=== PATIENT | female | born 1955 | race Caucasian/White ===

== ENCOUNTER → 2023-04-18 | Outpatient (CLI) | payer MEDICARE ==
[2023-04-18 08:57] LABS: ALT 30 U/L (4-34); AST 39 U/L (14-36); African American GFR (CKD) >90 (>60 ml/min/1.73 sqM); Albumin 3.8 g/dL (3.5-5.0); Albumin/Globulin Ratio 1.5; Alkaline Phosphatase 66 U/L (38-126); Anion Gap 9 mmol/L; Blood Urea Nitrogen 18 mg/dL (7-17); Calcium 8.2 mg/dL (8.4-10.2); Carbon Dioxide 23 mmol/L (22-30); Chloride 107 mmol/L (98-107); Globulin 2.5 g/dL; Glucose 84 mg/dL (74-99); Non-African American GFR(CKD) >90 (>60 ml/min/1.73 sqM); Potassium 4.1 mmol/L (3.5-5.1); Sodium 139 mmol/L (137-145); Total Bilirubin 1.1 mg/dL (0.2-1.3); Total Protein 6.3 g/dL (6.3-8.2)
--- NOTE | 2023-04-18 11:02 | CT ---
EXAMINATION TYPE: CT ChestAbdPelvis w con DATE OF EXAM: 04/18/2023 COMPARISON: None HISTORY: routine checkup colon cancer, cholecystectomy, R side colon removed. CT DLP: 1163.90 mGycm CONTRAST: CT scan of the chest, abdomen and pelvis is performed with Oral Contrast and with IV Contrast, patien t injected with 100mL mL of Isovue 300. CT Chest: LUNGS: The lungs are clear and free of infiltrate or atelectasis. No pulmonary nodule or mass is det ected. No pleural effusion or CT evidence of interstitial lung disease. MEDIASTINUM: Thoracic aorta is of normal caliber. The heart is not enlarged. No evidence for media stinal mass or adenopathy. Nodule right thyroid lobe. HILAR STRUCTURES: No evidence for mass. No hilar adenopathy is appreciated. OTHER: No significant abnormality. CONTRAST CT ABDOMEN AND PELVIS FINDINGS: LIVER/GB: No calcified gallstones. No space occupying hepatic lesion. Biliary tree is of normal ca liber. PANCREAS: No inflammation. No distinct mass. SPLEEN: No splenic enlargement. No lesion seen. ADRENALS: No nodule. No thickening. KIDNEYS/BLADDER: No hydronephrosis. No nephrolithiasis. No distinct renal mass. BOWEL: No recurrent or residual mass seen. Normal bowel caliber. No inflammation. Right hemicolectom y changes noted. Normal small bowel to large bowel anastomosis. Moderate fecal stasis. GENITAL ORGANS: No gross abnormality. LYMPH NODES: No greater than 1cm abdominal or pelvic lymph nodes are appreciated. AORTA: No significant abnormality. OSSEOUS STRUCTURES: No significant abnormality is seen. OTHER: No significant additional abnormality is seen. IMPRESSION: 1. Postoperative changes of right hemicolectomy. 2. No evidence for recurrent or residual mass. No metastatic disease. 3. Moderate fecal stasis.
[2023-04-18 11:52] LABS: T4, Free (Free Thyroxine) 1.26 ng/dL (0.80-1.80)
== END | disposition home or self-care (01) ==
LOC: RADCTMAIN 08:09
PROVIDERS: ATTEND Internal Medicine
DX: C18.4 Malignant neoplasm of transverse colon (principal); E03.9 Hypothyroidism, unspecified; Z71.3 Dietary counseling and surveillance; R19.5 Other fecal abnormalities; Z90.49 Acquired absence of other specified parts of digestive tract; Z98.890 Other specified postprocedural states
CPT/HCPCS: 84439; 80053; 84443; 83036; 71260; 74177; 36415; Q9967

== ENCOUNTER → 2023-06-05 | Outpatient (CLI) | payer MEDICARE ==
--- NOTE | 2023-06-14 13:47 | MM ---
Reason for Exam: Screening (asymptomatic). Last mammogram was performed 2 year(s) and 0 month(s) ago. Patient History: Menarche at age 9. First Full-Term at age 18. Hysterectomy at age 29. Postmenopausal. Paternal aunt had breast cancer. Risk Values: Zahra 5 year model risk: 1.4%. NCI Lifetime model risk: 4.2%. Prior Study Comparison: 05/23/2021 Bilateral Screening Mammogram, [place]. Tissue Density: There are scattered fibroglandular densities. Findings: Analyzed By CAD. There is no suspicious group of microcalcifications or new suspicious mass. Overall Assessment: Negative, BI-RAD 1 Management: Screening Mammogram of both breasts in [address] [facility] will attempt to contact patient to return for supplemental views and ultrasound if indicated. Patient should continue monthly self-breast exams. A clinical breast exam by your physician is recommended on an annual basis. This exam should not preclude additional follow-up of suspicious palpable abnormalities. Note on Zahra scores and lifetime risk: 1. A Zahra score greater than 3% is considered moderate risk. If this is the case, consider specialist referral to assess eligibility for a risk reducing agent. 2. If overall lifetime risk for the development of breast cancer is 20% or higher, the patient may qualify for future screening with alternating mammogram and breast MRI. Electronically signed and approved by: Kenrick Munguia DO
== END | disposition home or self-care (01) ==
LOC: RADMAMWWP 08:17
PROVIDERS: ATTEND Internal Medicine
DX: Z12.31 Encounter for screening mammogram for malignant neoplasm of breast (principal); C18.4 Malignant neoplasm of transverse colon; E78.5 Hyperlipidemia, unspecified; E03.9 Hypothyroidism, unspecified; Z71.3 Dietary counseling and surveillance; Z80.3 Family history of malignant neoplasm of breast; Z78.0 Asymptomatic menopausal state
CPT/HCPCS: 77063; 77067

== ENCOUNTER → 2023-06-05 | Outpatient (CLI) | payer MEDICARE ==
--- NOTE | 2023-06-05 10:37 | US ---
EXAMINATION TYPE: US thyroid st tissue head/neck DATE OF EXAM: 06/05/2023 COMPARISON: NONE CLINICAL INDICATION: Female, 68 years old with history of E04.2 NONTOXIC MULTINODULAR GOITER; Patient states right thyroid lobe has been removed and are watching a nodule. GLAND SIZE: Right Lobe: 4.5 x 2.2 x 2.8 cm Overall Parenchyma: unable to assess due to nodule; ? Nodule regrowth after thyroidectomy vs roe ve thyroid. Left Lobe: 1.6 x 0.7 x 0.9 cm Overall Parenchyma: Homogenous -unclear if this represents a small left thyroid lobe vs residual tissue following previous thyroidectomy Isthmus Thickness: 0.3 cm NODULES RIGHT: # of nodules measured on right: 1 1. 3.7 X 2.1 x 2.6 cm, solid cystic but predominantly solid heterogeneous TR 4 nodule which is wide r than tall, with smooth margins, with echogenic foci. Prior [place] LEFT: # of nodules measured on left: 0 ISTHMUS: # of nodules measured in the isthmus: 0 Bilateral neck scanned, no evidence of lymphadenopathy. IMPRESSION: 1. Large 3.7 cm TR4 nodule on the right. Please confirm patient's history. Patient reports history of previous right thyroidectomy. Compared to size on any available outside priors. FNA can be performed if this is new. 2. Small left lobe of the thyroid gland.
== END | disposition home or self-care (01) ==
LOC: RADUSWWP 08:19
PROVIDERS: ATTEND Internal Medicine Endocrinology, Diabetes & Metabolism
DX: E04.2 Nontoxic multinodular goiter (principal); E89.0 Postprocedural hypothyroidism
CPT/HCPCS: 76536

== ENCOUNTER 2023-10-22 08:19 | Day surgery (SDC) | payer MEDICARE ==
[2023-10-22] MEDS: LACTATED RINGERS 1,000 ML IV SCH (08:47)
[2023-10-22 09:06] VITALS: TEMP 97.5
[2023-10-22] MEDS ORDERED: LIDOCAINE 1% INJ 10MG/ML (20 ML MDV) ONE (10:13)
[2023-10-22] MEDS ORDERED: PROPOFOL 10 MG/ML 20 ML VIAL IV ONE (10:13)
--- NOTE | 2023-10-22 10:36 | P.PCN ---
Date of Procedure: 10/22/23 Procedure(s) Performed: BRIEF HISTORY: Patient is a 68-year-old pleasant white female scheduled for an elective colonoscopy as a part of surveillance of prior history of colon cancer diagnosed 2 years ago. She status post right hemicolectomy. PROCEDURE PERFORMED: Colonoscopy. PREOPERATIVE DIAGNOSIS: history of colon cancer diagnosed 2 years ago. IV sedation per Anesthesia. PROCEDURE: After informed consent was obtained, the patient, was brought into the endoscopy unit. IV sedation was administered by Anesthesia under continuous monitoring. Digital rectal examination was normal. Initially the Olympus CF-160 flexible video colonoscope was then inserted in the rectum, gradually advanced into theright colon without any difficulty. Careful examination was performed as the scope was gradually being withdrawn. The ileocolonic anastomosis appeared normal. Mucosa, THEtransverse colon, descending colon, sigmoid colon, and rectum appeared normal. Retroflexion was performed in the rectum and no lesions were seen. The patient tolerated the procedure well. IMPRESSION: Normal-appearing colon from rectum to right colon with normal ileocolic anastomosis. RECOMMENDATIONS: Findings of this examination were discussed with the patient as well as her family. She was advised to have a repeat colonoscopy in 2 years.
[2023-10-22 11:49] VITALS: BP 110/72; PULSE 69; RESP 18
== END 2023-10-22 11:32 | disposition home or self-care (01) ==
LOC: ORWHC2ENDO 08:19
PROVIDERS: ATTEND Internal Medicine Gastroenterology
DX: Z12.11 Encounter for screening for malignant neoplasm of colon (principal); E78.5 Hyperlipidemia, unspecified; E03.9 Hypothyroidism, unspecified; M19.90 Unspecified osteoarthritis, unspecified site; K21.9 Gastro-esophageal reflux disease without esophagitis; Z79.890 Hormone replacement therapy; Z79.899 Other long term (current) drug therapy; Z85.038 Personal history of other malignant neoplasm of large intestine; Z90.49 Acquired absence of other specified parts of digestive tract; Z98.0 Intestinal bypass and anastomosis status
CPT/HCPCS: J2001; J2704; G0105

== ENCOUNTER → 2024-04-20 | Outpatient (CLI) | payer MEDICARE ==
[2024-04-20 14:07] LABS: African American GFR (CKD) 81 (>60 ml/min/1.73 sqM); Blood Urea Nitrogen 19 mg/dL (7-17); Non-African American GFR(CKD) 70 (>60 ml/min/1.73 sqM)
--- NOTE | 2024-04-20 16:35 | CT ---
EXAMINATION TYPE: CT ChestAbdPelvis w con DATE OF EXAM: 04/20/2024 COMPARISON: 04/18/2023 HISTORY: routine checkup colon cancer, cholecystectomy, R side colon removed CT DLP: 1525.4 mGycm Automated exposure control for dose reduction was used. CONTRAST: CT scan of the chest, abdomen and pelvis is performed with Oral Contrast and with IV Contrast, patien t injected with 100 ml mL of Isovue 370. FINDINGS: CT chest: There is a small hiatal hernia. Stable right thyroid nodule. There is no suspicious lung mass or nodule. There is no abnormal airspace/consolidative density or abnormal interstitial density. There is no pleural effusion, pleural thickening or pneumothorax. The great vessels and chest are normal there is no mediastinal, hilar or axillary adenopathy. There a re calcified mediastinal and hilar lymph nodes. No focal osseous lesions are seen. CT abdomen and pelvis: There is surgical absence of the gallbladder. There is no biliary ductal dilatation. There is no focal mass or organomegaly involving the liver, pancreas, spleen or adrenal glands.. There is no solid renal mass or hydronephrosis. There is no retroperitoneal adenopathy or hemorrhage in the caliber of the abdominal aorta is normal. There are postsurgical changes of right hemicolectomy. The bowel loops are normal in caliber and ther e is no dilatation or obstruction. No inflammatory changes identified in the bowel wall and mesentery . There is no free intraperitoneal air or fluid. There is no pelvic mass or adenopathy. There is no free fluid within the pelvis. There is surgical ab sence of the uterus. No focal osseous lesions are seen. Soft tissue the abdomen and pelvis are normal. IMPRESSION: No evidence of recurrent or metastatic disease within the chest, abdomen or pelvis. No interval le e compared to previous. [facility], , 04/20/2024 4:32 PM
== END | disposition home or self-care (01) ==
LOC: RADCTMAIN 13:21
PROVIDERS: ATTEND Internal Medicine
DX: C18.4 Malignant neoplasm of transverse colon
CPT/HCPCS: 36415; 71260; 74177; 82565; 84520

== ENCOUNTER → 2024-08-18 | Outpatient (CLI) | payer MEDICARE ==
--- NOTE | 2024-08-18 07:58 | US ---
EXAMINATION TYPE: US thyroid st tissue head/neck DATE OF EXAM: 08/18/2024 COMPARISON: 06/05/23 CLINICAL INDICATION: Female, 69 years old with history of E042 NONTOXIC MULTI GOITER; Goiter, F/U nod ule TECHNIQUE: Grayscale and color Doppler imaging of the thyroid gland. FINDINGS: GLAND SIZE: Right Lobe: 4.7x2.8x1.9 cm Overall Parenchyma: homogeneous Left Lobe: Surgically absent cm Isthmus Thickness: 0.2 cm NODULES RIGHT: # of nodules measured on right: 1 1. 3.9 X 2.8 x 2.7 cm, lower mid, solid or almost completely solid, isoechoic nodule, which is tall er than wide, with smooth margins, without echogenic foci. TR 3. Prior size: 3.7 x 2.1 x 2.6 cm LEFT: # of nodules measured on left: 0 ISTHMUS: # of nodules measured in the isthmus: 0 Bilateral neck scanned, no evidence of lymphadenopathy. patient had prior unilateral thyroidectomy. Residual thyroid tissue not noted with confidence on toda y's exam IMPRESSION: Mildly suspicious nodule right lobe thyroid. Fine-needle aspiration recommended if not previously per formed. 2017 ACR TI-RADS LEVEL: TR-RADS 3 - Mildly Suspicious: Follow if > 1.5 cm, FNA if > 2.5 cm *Highest TI-RADS level nodule reported [email or web address] [facility], Workstation: [facility], 08/18/2024 7:56 AM
--- NOTE | 2024-08-18 08:08 | MM ---
Reason for Exam: Screening (asymptomatic). Last mammogram was performed 1 year(s) and 3 month(s) ago. Patient History: Menarche at age 9. First Full-Term at age 18. Hysterectomy at age 29. Postmenopausal. Patient has history of breast feeding. Paternal aunt had breast cancer. Risk Values: Zahra 5 year model risk: 1.4%. NCI Lifetime model risk: 4.0%. Prior Study Comparison: 05/23/2021 Bilateral Screening Mammogram, [place]. 06/05/2023 Bilateral MG 3D screening mammo w/cad, [facility]. Tissue Density: There are scattered areas of fibroglandular density. Findings: Analyzed By CAD. Benign-appearing bilateral axillary lymph nodes. Single benign appearing round calcification in the left breast. There is no suspicious new group of microcalcifications or new suspicious mass in either breast. Overall Assessment: Benign, BI-RAD 2 Management: Screening Mammogram in 1 year. . Patient should continue monthly self-breast exams. A clinical breast exam by your physician is recommended on an annual basis. This exam should not preclude additional follow-up of suspicious palpable abnormalities. Note on Zahra scores and lifetime risk: 1. A Zahra score greater than 3% is considered moderate risk. If this is the case, consider specialist referral to assess eligibility for a risk reducing agent. 2. If overall lifetime risk for the development of breast cancer is 20% or higher, the patient may qualify for future screening with alternating mammogram and breast MRI. [facility], , 08/18/2024 8:05 AM. Electronically signed and approved by: Dane Jennings M.D.
== END | disposition home or self-care (01) ==
LOC: RADMAMWWP 06:43
PROVIDERS: ATTEND Family Medicine
DX: Z12.31 Encounter for screening mammogram for malignant neoplasm of breast (principal); R92.323 Mammographic fibroglandular density, bilateral breasts; E04.2 Nontoxic multinodular goiter; Z78.0 Asymptomatic menopausal state; Z80.3 Family history of malignant neoplasm of breast
CPT/HCPCS: 76536; 77063; 77067